=== PATIENT | male | born 1970 | race Caucasian/White ===

== ENCOUNTER 2016-10-19 17:13 | Emergency (ER) | payer MEDICAID ==
[~2016-10-19] VITALS: Ht 185.4 cm; Wt 77.1 kg
[~2016-10-19 17:13] MED LIST: AMITRIPTYLINE75 MG PO; DOXYCYCLINE HY100 M1 PO; GABAPENTIN800 MG PO; IMDUR 30MG. TAB30 MG PO; LORTAB 5/500 501 TAB PO; METOPROLOL TAR100 MG PO; OMEPRAZOLE40 MG PO; PROVENTIL0.09 MG/A1 IH; SIMVASTATIN10 MG PO
--- NOTE | 2016-10-19 17:21 | Emergency Room Report ---
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 N Clinical Suspician of Infection? N Mental Status: 1 - Regular (Normal Baseline) Sepsis Risk:Low Sepsis Risk Have you (or family members/close friends) recently traveled outside the [place]? N If Yes, where/when: Have you had exposure to infectious disease within the past month? TB? Other? Specify: Comment He complains of intermittent chest pain for a month. He gets it every day, 7-8 times a day. It lasts about 5 minutes. It is a LEFT anterior chest pain that goes down his LEFT arm. Associated with shortness of breath, but no other symptoms including no diaphoresis or nausea. Things seems to bring it on or relieve it. He is not currently having any pain. He had a workup for chest pain last year. He had an angiogram on February 18 at this facility. 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 Moderate [id number] coronary artery disease. Normal ejection fraction. Risk factor modification and absolute tobacco cessation were recommended. He was started on Imdur and aspirin. He still takes those medicines, but has not stop smoking. He has an appointment to see Dr. Worthington on Monday. ALLERGIES Coded Allergies: No Known Allergies (10/19/16) Home Medications Reported Medications ISOSORBIDE MONONITRATE (IMDUR 30MG) 30 MG PO QHS Simvastatin 10 MG PO QHS Omeprazole (Omeprazole 40MG) 40 MG PO BID Metoprolol Tartrate (Metoprolol 100MG) 100 MG PO BID AMITRIPTYLINE HCL (Amitriptyline HCl) 75 MG PO QHS Gabapentin (Gabapentin 800MG) 800 MG PO Q8 History Medical History General CAD? No Angina: Yes [place]: No Hypertension? Yes Hyperlipidemia? Yes CHF? No COPD? No Asthma? No Anemia? No Hernia? No Thyroid Problems? No Hypothyroidism? No CVA? No Seizures? No Diabetes? No End Stage Renal Disease? No UTI? No Stones? No GB Disease: No Nephritic Syndrome? No Asplenia? No Hepatitis? No Sickle Cell Disease? No Arthritis? No Cataracts? No Glaucoma? No MRSA? No TB? No Cancer? No Immunization Hx DT/Tetanus Unknown Flu Refused Pneumonia Refuses Surgical Hx Previous Surgery?Y CARDIAC CATH EGD Family History Family Hx Diabetes No CAD Yes Hypertension Yes Hyperlipidemia Yes Cancer Yes TB No Social History Smoking Hx Packs/day 1 1/2 - 2 Packs Alcohol Alcohol: No Review of Systems All Other Systems Reviewed and Negative Constitutional denies diaphoresis Respiratory shortness of breath Cardiovascular chest pain Gastrointestinal denies nausea, denies vomiting Musculoskeletal see HPI Physical Exam Vital Signs Vital Signs Date Time Temp Pulse Resp B/P Pulse O2 O2 Flow FiO2 Ox Delivery Rate 10/19 1807 78 20 126/77 97 10/19 1714 98.0 83 18 131/70 99 General Appearance normal appearance, WD/WN Eye Exam - bilateral eye normal exam, bilateral eye PERRL, bilateral eye EOMI Ear, Nose, Throat hearing grossly normal, normal ENT inspection Neck normal inspection, non-tender, supple, full range of motion Respiratory Status Yes: trachea midline, chest symmetrical, non tender chest. No: respiratory distress. Lung Sounds bilateral: normal breath sounds, lungs clear. Cardiovascular normal exam, regular rate/rhythm, no peripheral edema, no gallop, no JVD, no murmur, no rub, normal peripheral pulses Peripheral Pulses Pulses normal Yes Gastrointestinal normal bowel sounds, normal exam, non tender, soft, no organomegaly Extremities non-tender, normal range of motion, normal inspection Neurologic alert, normal exam, oriented x 3 Mental status normal mood/affect Skin intact, normal color, warm/dry Medical Decision Making LABS/Meds/Orders Pt receiving controlled substance in ED? No Results/Orders Laboratory Tests 10/19/161716: Sodium 140, Potassium 3.8, Chloride 104, Carbon Dioxide 28, BUN 11, Creatinine 1.0, Estimated Creat Clear 103, Estimated GFR (MDRD) 81, Glucose 120 H, Calcium 8.7, Total Bilirubin 0.3, AST 18, ALT 25, Alkaline Phosphatase 70, Creatine Kinase 123, CK-MB (CK-2) Rel Index 0.4, CK and CKMB Interp < 0.5, Troponin I < 0.02, Total Protein 7.4, Albumin 4.0, Globulin 3.4 H, Albumin/Globulin Ratio 1.2, WBC 4.7 L, RBC 4.43 L, Hgb 14.7, Hct 43.3, MCV 97.8, RDW 12.7, Plt Count 195, MPV 7.8, Gran % 45.8, Gran # 2.2, Lymphocytes % 43.8, Monocytes % 7.2, Eosinophils % 2.3, Basophils % 0.9, Lymphocytes # 2.1, Monocytes # 0.3, Eosinophils # 0.1, Basophils # 0.0, PUBS MCHC 33.9, MCH 33.2 H Current Medication Orders Sig/Apoorva Start time Last Medication Dose Route Stop Time Status Admin Aspirin 324 MG ONCE ONE 10/19 1730 DC 10/19 PO 10/19 173 1728 Sodium Chloride 10 ML PRN PRN 10/19 1730 AC IV 10/20 1724 Aspirin 0 .STK-MED ONE 10/19 1727 DC .ROUTE Orders Procedure Date/time Status ELECTROCARDIOGRAM REQUEST 10/19 172 Active 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 No infiltrate, pneumothorax, pleural effusion, or wide mediastinum. Departure Departure Disposition DC Home or Self Care(routine) Clinical Impression Primary Impression: Atypical chest pain Condition STABLE Referrals Mary GARRETT,Bubba Elizabeth (Family) Patient Instructions DI for Atypical Chest Pain Additional Instructions Additional instructions for CHEST PAIN: Keep your appointment with Dr. Worthington on Monday. Return immediately if worsening or more prolonged chest pain, vomiting, shortness of breath, fever, coughing of blood. ED Critical Care Critical Care No
[2016-10-19 17:32] LABS: HEMOGLOBIN 14.7 g/dL (14.1-18.0); LYMPH # 2.1 K/mm3 (0.7-4.5); LYMPH % 43.8 % (10-50)
[2016-10-19 17:56] LABS: BUN 11 mg/dL (7-18)
[2016-10-19 17:57] LABS: GFR (ESTIMATED) 81 ML/MIN (>60)
--- NOTE | 2016-10-19 18:03 | RADIOLOGY REPORT PS360 ---
CHEST-PORTABLE HISTORY: Chest pain, smoker CP ORDERING PHYSICIAN: Morgan Patel MD PATIENT AGE: 45 years COMPARISON: 03/12/2014 FINDINGS: The cardiomediastinal silhouette and pulmonary vascularity are within normal limits. The lungs are clear without infiltrates, suspicious nodules, or pleural effusions. No acute bony abnormalities. IMPRESSION: Negative chest, no acute finding
[2016-10-19 18:51] VITALS: BP 122/70
== END 2016-10-19 18:56 | disposition home or self-care (01) ==
LOC: ER 17:13
PROVIDERS: Emergency Medicine
DX: R07.89 Other chest pain (principal); I10 Essential (primary) hypertension; E78.5 Hyperlipidemia, unspecified; Z79.899 Other long term (current) drug therapy

== ENCOUNTER → 2016-11-24 | Outpatient (CLI) | payer MEDICAID ==
[2016-11-24 17:37] LABS: HEMOGLOBIN 13.8 g/dL (14.1-18.0); LYMPH # 2.1 K/mm3 (0.7-4.5); LYMPH % 28.8 % (10-50)
[2016-11-24 18:06] LABS: BUN 7 mg/dL (7-18)
[2016-11-24 19:37] LABS: GFR (ESTIMATED) 81 ML/MIN (>60)
== END ==
LOC: LAB 17:03
PROVIDERS: Nurse Practitioner Family
DX: G62.9 Polyneuropathy, unspecified (principal); Z79.899 Other long term (current) drug therapy